=== PATIENT | male | born 1945 | race Caucasian/White ===

== ENCOUNTER 2019-01-17 07:34 | Inpatient (IN) ==
--- NOTE | 2019-01-16 12:38 | Anesthesia Evaluation PreOp ---
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 Any Significant HX Other Medical History: Diabetes Type II Anesthesia History: No Prior Anesthetic Complications, Past Anesthesia (lukas) Alcohol Use: rarely Drug use: none Medications and Allergies Cetirizine HCl 10 mg PO DAILY PRN 01/17/19 [History] Enalapril Maleate [Vasotec] 2.5 mg PO DAILY 01/17/19 [History] Escitalopram [Lexapro] 20 mg PO DAILY 01/17/19 [History] Metformin HCl [Fortamet] 500 mg PO BID 01/17/19 [History] Pioglitazone HCl 30 mg PO DAILY 01/17/19 [History] Tramadol HCl [Ultram] 50 mg PO TID PRN 01/17/19 [History] clonazePAM [Clonazepam] 1 mg PO TID 01/17/19 [History] Allergy/AdvReac Type Severity Reaction Status Date / Time No Known Allergies Allergy Verified 01/17/19 07:58 - Meds/Allergy Pre-op Review Medications Reviewed: Yes Allergies Reviewed: Yes Beta Blockers on Current Med List: No Anesthesia Results - Labs Laboratory Tests 01/11/19 01/11/19 01/11/19 11:03 11:03 11:03 WBC 5.5 Hgb 15.4 Hct 45.6 Plt Count 219 Sodium 136 Potassium 3.7 Chloride 101 Carbon Dioxide 24 BUN 20 Creatinine 1.32 H Est GFR (Non-Af Amer) 53 L Hemoglobin A1c 9.8 H - Imaging EKG: report reviewed Additional studies: 01/2018 echocardiogram Impressions: LVEF 60-65%. Mild left ventricular diastolic dysfunction. Normal right ventricular structure and function. Mild-moderate mitral regurgitation. Mild tricuspid regurgitation. No pulmonary hypertension. Left Ventricular Wall Motion: Rest Echo Findings All wall segments showed normal motion. Findings: Study Quality * Technically adequate exam. ECG Findings * Normal sinus rhythm. Left Ventricle * LVEF 60-65%. * LV wall thickness measurements not well obtained. * Mild left ventricular diastolic dysfunction. Right Ventricle * Normal right ventricular structure and function. Left Atrium * Normal left atrial size. Right Atrium * Normal right atrial size. Aortic Valve * No aortic regurgitation. * Trileaflet aortic valve. * No aortic stenosis. Mitral Valve * No mitral stenosis. * Mildly calcified mitral valve leaflets. * Mild-moderate mitral regurgitation. Tricuspid Valve * Tricuspid valve not well visualized. * Mild tricuspid regurgitation. * Estimated RA pressure is 3 mmHg. * Estimated RVSP is 27 mmHg. * No pulmonary hypertension. Pulmonic Valve * Pulmonic valve is not well visualized. * No pulmonic stenosis. * No pulmonic regurgitation. Pulmonary Artery * Pulmonary artery not well visualized. Aorta * Normally sized aortic root. Pericardium * There is no pericardial effusion present. Interatrial Septum * No evidence of PFO by color Doppler. IVC * Normal IVC dimensions and inspiratory collapse. Stress 01/2018 Impression: Perfusion imaging was negative for ischemia or infarct. Pharmacologic stress ECG is negative for ischemia at level of heart rate achieved. Gated EF > 70%. 11/22/2018 CT/CT angio chest IMPRESSION: 1. Slightly increased size of focal fat consistent with a lipoma superior to the left ventricle. Using similar planes of measurement, it measures 6.9 x 6.7 cm on the current exam, previously 6.4 x 6.2 cm. 2. Interval development of a ground-glass nodule in the left lower lobe measuring up to 2.3 cm, with adjacent more irregular ground-glass opacities medially in the left lower lobe. The differential includes an infectious or inflammatory process, although an indolent neoplasm could have a similar appearance. Continued follow-up is recommended per guidelines below. Anesthesia Exam Vital Signs/O2 Sat/Glucose, Most Recent Temp Pulse Resp BP Pulse Ox 97.9 F 78 18 153/89 95 01/17/19 07:54 01/17/19 07:54 01/17/19 07:54 01/17/19 07:54 01/17/19 07:54 Blood Glucose* 130 Weight: 82 kg NPO (# of Hours): > 8 hr - HEENT Pupil (Motor): Pupils equal Mallampati: II Teeth: Normal Oral Opening: Greater than 3 - COLLECTIVE BARGAINING SPECIALIST LOC: Oriented COLLECTIVE BARGAINING SPECIALIST Motor: Normal RUE, Normal LUE, Normal RLE, Normal LLE, Normal Face COLLECTIVE BARGAINING SPECIALIST Sensory: Normal: RUE, LUE, RLE, LLE, Face - Cardiac Rhythm: Regular Murmur: None - Pulmonary Breath Sounds: bilateral Clear Respiratory Effort: Symmetrical Anesthesia Assess/Plan ASA Score: 3 (HTN, DM, cardiac lipoma, LORNA) Level of consciousness: Cooperative, Oriented Anesthetic Plan: General Monitoring Plan: Standard Monitors, A-Line, CVC Recovery Plan: ICU
[2019-01-17] MEDS ORDERED: *HR* Midazolam HCl 5 MG/5 ML VIAL IVP ONE (07:37)
[2019-01-17] MEDS ORDERED: *HR* FentaNYL (PF) 1,000 MCG/20 ML VIAL ONE (07:37)
[2019-01-17] MEDS ORDERED: *HR* PHENYLEPHRINE 1,000 MCG/10 ML SYRINGE IVP ONE (07:37)
[2019-01-17] MEDS ORDERED: Dexamethasone 4 MG/ML VIAL ONE (07:37)
[2019-01-17] MEDS ORDERED: *HR* Rocuronium Bromide 50 MG/5 ML VIAL ONE ×2 (07:37→10:15)
[2019-01-17] MEDS ORDERED: *HR* Propofol 200 MG/20 ML VIAL IVP ONE (07:37)
[2019-01-17] MEDS ORDERED: Famotidine 20 MG/2 ML VIAL ONE (07:39)
[2019-01-17] MEDS ORDERED: *HR* Magnesium Sulfate 1 GM/2 ML VIAL ONE (07:45)
[2019-01-17] MEDS ORDERED: CeFAZolin Syr 2,000MG/20 ML 2,000 MG/20 ML SYRINGE IVPB ONE (08:06)
[2019-01-17] MEDS ORDERED: Chlorhexidine Rinse 15 ML MOUTHWASH MM ONE (08:08)
[2019-01-17] MEDS ORDERED: Ringers Solution, Lactated 1,000 ML IVC SCH (08:15)
--- NOTE | 2019-01-17 08:33 | History & Physical Report ---
Date of Encounter: 01/17/19 Time of Encounter: 08:32 24 Hour HP Update - Instructions Instructions: If the History and Physical is less than 30 days old and was completed prior to A.M. admission and or procedure and has NOT been updated on calendar day of procedure please complete this update prior to performing procedure. - Update Patient reports changes in Medical Condition: No Changes in examination, assessment, or condition: No Changes in Medication: No Preop tests/diagnostics Reviewed: Yes Pre-Op MRSA Screen: Negative Surgery Remains Indicated: Yes Consent for Planned Operative Procedure(s) Verified: Yes - Pre-Operative Checklist Preoperative Checklist Indicated: Yes Prophylactic Antibiotic Ordered: Yes Home Medications Include Beta Terra: No Beta Terra Taken Today (Day of Surgery): No Beta Terra Taken Yesterday (Day Prior to Surgery): No Is VTE Prophylaxis Indicated?: Yes
[2019-01-17] MEDS ORDERED: Nitroglycerin 25 MG/250 ML INFUS..BTL IVC ONE (08:46)
[2019-01-17] MEDS ORDERED: Acetaminophen IV 1,000 MG/100 ML INFUS..BTL ONE (08:57)
[2019-01-17] MEDS ORDERED: Norepinephrine 4 MG in D5% in Water 250 ML IVC SCH (09:00)
[2019-01-17 09:17] LABS: ABG Base Excess -2 mEq/L (-2 to 3); ABG Chloride 105 mEq/L (98-107); ABG Glucose 114 mg/dL (60-95); ABG HCO3 24 mEq/L (21-27); ABG Ionized Calcium 1.24 mmol/L (1.15-1.35); ABG Oxygen Saturation 100 % (95-98); ABG PCO2 48 mmHg (35-45); ABG PH 7.32 pH Units (7.32-7.45); ABG PO2 275 mmHg (85-104); ABG TCO2 26 mEq/L (20-26)
[2019-01-17] MEDS ORDERED: Tranexamic Acid 1,000 MG/10 ML VIAL ONE (09:58)
[2019-01-17] MEDS ORDERED: Insulin Human Regular 100 UNIT in 0.9 % Sodium Chloride 100 ML IV PRN ×2 (10:00→11:49)
[2019-01-17] MEDS ORDERED: Dextrose 50 % in Water (Vial) 30 ML, Sodium Bicarbonate 20 MEQ, Lidocaine 1% 5 ML, Insu... TH ONE ×5 (10:00→11:49)
[2019-01-17] MEDS ORDERED: Dextrose 50 % in Water (Vial) 30 ML, Sodium Bicarbonate 20 MEQ, Potassium Chloride 15 M... TH ONE ×2 (10:00→11:49)
[2019-01-17] MEDS ORDERED: Norepinephrine 4 MG in D5% in Water 250 ML IVC PRN (10:00)
[2019-01-17] MEDS ORDERED: Heparin 15,000 UNIT in 0.9 % Sodium Chloride 500 ML IV ONE (10:15)
[2019-01-17] MEDS ORDERED: Protamine Sulfate 250 MG/25 ML VIAL IVP ONE (10:17)
[2019-01-17 10:18] LABS: ABG Base Excess -3 mEq/L (-2 to 3); ABG Chloride 106 mEq/L (98-107); ABG Glucose 115 mg/dL (60-95); ABG HCO3 22 mEq/L (21-27); ABG Ionized Calcium 1.18 mmol/L (1.15-1.35); ABG Oxygen Saturation 100 % (95-98); ABG PCO2 36 mmHg (35-45); ABG PO2 193 mmHg (85-104); ABG TCO2 23 mEq/L (20-26)
[2019-01-17] MEDS ORDERED: Ondansetron 4 MG/2 ML VIAL ONE (10:30)
[2019-01-17] MEDS ORDERED: *HR* Labetalol 100 MG/20 ML MDV ONE (10:34)
[2019-01-17 10:55] LABS: ABG Base Excess -1 mEq/L (-2 to 3); ABG Chloride 103 mEq/L (98-107); ABG Glucose 120 mg/dL (60-95); ABG HCO3 25 mEq/L (21-27); ABG Ionized Calcium 1.08 mmol/L (1.15-1.35); ABG Oxygen Saturation 100 % (95-98); ABG PCO2 42 mmHg (35-45); ABG PH 7.38 pH Units (7.32-7.45); ABG PO2 495 mmHg (85-104); ABG TCO2 26 mEq/L (20-26)
--- NOTE | 2019-01-17 11:33 | Operative Note ---
Date of procedure: 01/17/19 Pre-op diagnosis: epicardial lipoma Post-op diagnosis: same Procedure: transternal resection of epicardial lipoma with bypass Complications: none Anesthesia: IMERA Surgeon: Guero Patterson Co-Surgeon: Heidy Kincaid Was there an staffing assistant present: No Estimated blood loss (cc): 100 Specimen: lipoma Condition: stable Disposition: ICU Procedure in Detail: The patient was brought to the operating room and placed on the operating table in the supine position. After undergoing general anesthesia with sequential compressive devices on bilateral lower extremities and perioperative antibiotics on board was prepped and draped in the usual sterile fashion an incision was made overlying the sternum with a #10 scalpel blade through the skin down of the subcutaneous tissues with the Bovie used to control hemostasis and to continue the dissection down to the sternum the sternum was divided longitudinally with the sternal saw, and periosteal bleeding controlled with the Bovie cautery. After opening of the pericardium and tacking it to the sternum epicardial lipoma could be identified coming off posterior to the aorta and anterior to the main pulmonary artery due to this location and hypotension only down to the 90s with manipulating the heart the patient was fully anticoagulated with 27,000 units of heparin aorta was cannulated with 2-0 Ethibond sutures 2 and the atrial appendage cannulated with 2-0 Ethibond suture. Once going on bypass and decompressing the heart the heart was elevated and removed towards the right of midline. Epicardial tumor was grasped and dissected off the space between the posterior aorta and anterior to the main pulmonary artery. Hemostasis was excellent even while on pump patient received 300 units of protamine to reverse the effects of heparin the venous cannula withdrawn and the suture tied hemostasis was excellent the arterial cannula was withdrawn and the 2 pursestring sutures tied hemostasis remained excellent up to 141 systolic blood pressure. 2 separate incisions were made on the anterior abdominal wall and 24 Buck drains are placed through the pericardium into the right and left pleural spaces and secured into place with silk suture. Sternal wires were placed sternal wires were taken and platelet rich gel sprayed over the bed of the sternum and the deep subcutaneous tissues. Remaining incision was closed with #1 Vicryl, 0 Vicryl, and 4-0 Monocryl subcuticular stitches with dressings consisting of Steri-Strips and sterile gauze. Patient was taken to the intensive care unit. The total pump run time was 11 minutes.
[2019-01-17] MEDS ORDERED: niCARdipine 20 MG/200 ML MLS IVC SCH (11:45)
[2019-01-17] MEDS: niCARdipine 20 MG/200 ML MLS IVC SCH ×3 (11:48→21:28)
[2019-01-17] MEDS ORDERED: Ondansetron 4 MG/2 ML VIAL IVP PRN (11:49)
[2019-01-17] MEDS ORDERED: Dextrose Gel 15 GM/37.5 ML TUBE PO PRN ×2 (11:49)
[2019-01-17] MEDS ORDERED: Naloxone 0.4 MG/ML INJ IVP PRN (11:49)
[2019-01-17] MEDS ORDERED: *HR* Dextrose 50 % in Water (Syg) 50 ML SYRINGE IVP PRN (11:49)
[2019-01-17] MEDS ORDERED: D5% in Water 1,000 ML IVC PRN (11:49)
--- NOTE | 2019-01-17 12:33 | Anesthesia Evaluation Post Op ---
Date of Encounter: 01/17/19 Time of Encounter: 12:31 - Vital Signs Vital Signs: Vital Signs/O2 Sat/Glucose, Most Recent Temp Pulse Resp BP Pulse Ox 96.9 F L 63 16 102/54 93 01/17/19 11:40 01/17/19 12:15 01/17/19 12:15 01/17/19 12:15 01/17/19 12:15 Blood Glucose* 166 - Lungs Lungs: Clear Ascult./Percussion - Airway Airway: Intubated - Cardiovascular Regular Rate - Mental Status Mental Status: Alert & Oriented, Answers Appropriately - Pain Pain Scale used: Unable to assess - Nausea Vomiting Nausea Vomiting: Not Present - Hydration Hydration: NPO, Cantor catheter - Discharge Attestation: patient recovering well POD#0 sternotomy and cardiac lipoma resection. Currently weaning to extubation
[2019-01-17] MEDS: 0.9 % Sodium Chloride 1,000 ML IVC SCH (13:07)
[2019-01-17] MEDS: Morphine Sulfate 2 MG/ML SYRINGE IVP PRN ×3 (13:09→22:39)
[2019-01-17] MEDS: Ipratropium/Albuterol Neb 3 ML IH SCH ×4 (13:44→23:11)
--- NOTE | 2019-01-17 13:53 | Electrocardiograph Report ---
[place] [id number] Test Date: 2019-01-17 Pat Name: William Burden Department: 106 Room: [facility] Gender: M Director Of Nurses Registry: : 1945 Requested By: Vick Peacock Order Number: [id number] Reading MD: Srinivas Bradshaw Measurements Intervals [place] Rate: 66 P: 32 OR: 171 QRS: -2 QRSD: 102 T: 13 QT: 389 QTc: 403 Interpretive Statements SINUS RHYTHM NONSPECIFIC T-WAVE ABNORMALITY Electronically Signed On 01-17-2019 13:51:55 EDT by Srinivas Bradshaw
[2019-01-17] MEDS: Insulin LISPRO 300 UNITS/3 ML VIAL SQ SCH ×3 (14:00→20:01)
[2019-01-17] MEDS: clonazePAM 1 MG TABLET PO SCH ×2 (16:16→20:00)
[2019-01-17] MEDS: Gabapentin 300 MG CAPSULE PO SCH ×2 (16:16→20:00)
[2019-01-17] MEDS ORDERED: Sodium Bicarbonate 50 MEQ/50 ML VIAL IVC ONE (16:20)
[2019-01-17] MEDS ORDERED: Albumin Human 25% 25 GM/100 ML IV.SOLN IV ONE (16:20)
[2019-01-17] MEDS ORDERED: *HR* Heparin 10,000 UNIT/10 ML VIAL IV ONE (16:20)
[2019-01-17] MEDS ORDERED: Tranexamic Acid 1,000 MG/10 ML VIAL IVPB ONE (16:20)
[2019-01-17] MEDS ORDERED: *HR* Phenylephrine 10 MG/ML VIAL IVC ONE (16:20)
[2019-01-17] MEDS ORDERED: Mannitol 25% vial 12.5 GM/50 ML VIAL IVP ONE (16:20)
[2019-01-17] MEDS: Sennosides/Docusate Sodium TABLET PO SCH (20:00)
[2019-01-17] MEDS: Famotidine 20 MG TABLET PO SCH (20:00)
[2019-01-17] MEDS: *HR* HYDROcodone/Acet 5/325 mg TABLET PO PRN (20:07)
[2019-01-18] MEDS: niCARdipine 20 MG/200 ML MLS IVC SCH ×5 (00:22→09:13)
[2019-01-18] MEDS: 0.9 % Sodium Chloride 1,000 ML IVC SCH (01:30)
[2019-01-18] MEDS: Ipratropium/Albuterol Neb 3 ML IH SCH ×6 (03:54→23:58)
[2019-01-18 04:16] LABS: Hematocrit 37.6 % (37.5-50.1); Mean Corpuscular HGB Conc 34.6 g/dL (31.6-35.5); Mean Corpuscular Hemoglobin 30.7 pg (28.0-33.3); Mean Corpuscular Volume 88.7 fL (83.0-100.0); Mean Platelet Volume 9.4 fL (9.4-12.4); Platelet Count 174 K/mcL (140-400); Red Blood Count 4.24 M/mcL (4.19-5.50)
[2019-01-18 04:34] LABS: BUN/Creatinine Ratio 19 (6-26); Blood Urea Nitrogen 22 mg/dL (8-23); Calcium 8.1 mg/dL (8.6-10.3); Carbon Dioxide 21 mEq/L (23-29); Chloride 106 mEq/L (98-107); Glucose 257 mg/dL (70-105); Magnesium 1.6 mg/dL (1.6-2.6); Osmolality,Calculated 290 (280-300); Potassium 4.8 mEq/L (3.5-5.1); Sodium 134 mEq/L (136-145); eGFR For African Americans > 60 (> 60); eGFR For Non-African Americans > 60 (> 60)
[2019-01-18] MEDS: *HR* HYDROcodone/Acet 5/325 mg TABLET PO PRN ×3 (06:38→19:32)
[2019-01-18] MEDS: Morphine Sulfate 2 MG/ML SYRINGE IVP PRN (08:00)
[2019-01-18] MEDS: Insulin LISPRO 300 UNITS/3 ML VIAL SQ SCH ×4 (08:00→19:34)
[2019-01-18] MEDS: Sennosides/Docusate Sodium TABLET PO SCH ×2 (08:12→19:32)
[2019-01-18] MEDS: Gabapentin 300 MG CAPSULE PO SCH ×3 (08:12→19:32)
[2019-01-18] MEDS: Famotidine 20 MG TABLET PO SCH ×2 (08:12→19:34)
--- NOTE | 2019-01-18 09:31 | Cardiothoracic Progress Note ---
Date of Encounter: 01/18/19 Time of Encounter: 09:29 - Assessment and plan (1) Benign tumor of heart Current Visit: Yes Status: Acute The assessment and plan as outlined above was discussed with the patient and/or family members who expressed understanding and agreement. All questions were answered. remove central line and a line today replace magnesium (2) Essential hypertension Current Visit: No Status: Chronic The assessment and plan as outlined above was discussed with the patient and/or family members who expressed understanding and agreement. All questions were answered. 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 All questions were answered. continue current diet and home meds Vital Signs, Last 4 Hours Temp Pulse Resp BP Pulse Ox 01/18/19 08:00 74 19 135/58 93 01/18/19 07:30 74 20 135/51 90 01/18/19 06:56 98.7 F 01/18/19 06:00 75 21 132/51 90 Oxgyen Flow Rate Oxygen Flow Rate (LPM) 10 Clinical Data, last 8 Hours Output, Chest Tube Drainage 24 Amount [Mediastinal #2] Output, Chest Tube Drainage 26 Amount [Mediastinal #2] Output, Chest Tube Drainage 30 Amount [Mediastinal #1] Output, Chest Tube Drainage 60 Amount [Mediastinal #1] Weight 01/16/19 01/17/19 01/18/19 23:59 23:59 23:59 Weight 89.4 kg 89.4 kg - Physical Examination General: Conversant, No Apparent Distress, Well developed, Well nourished HEENT: Atraumatic, Normocephaly Cardiac: Reg Rate and Rhythm, Normal S1 and S2 Incision: No signs of infection, Dry/intact dressing Chest tubes: Minimal drainage Lungs: Normal Breath Sounds Neuro: Alert and responsive, No focal deficits noted, Cranial nerves intact, Motor nerves intact Abdomen: Soft, Non-tender - Labs 01/18/19 04:00 01/18/19 04:00 Lab Results, Last 24 hours 01/18/19 01/18/19 04:00 04:00 WBC 15.0 H D Hgb 13.0 D Hct 37.6 Plt Count 174 Sodium 134 L Potassium 4.8 Chloride 106 Carbon Dioxide 21 L BUN 22 Creatinine 1.14 Glucose 257 H Calcium 8.1 L Magnesium 1.6 - Imaging Chest Xray: image reviewed Consult Discharge Plan - Plan Referrals: Seven Raymundo MD [Primary Care Provider] - 01/29/19 2:00 pm Guero Patterson MD [Partnered Physician] - 02/11/19 9:50 am
[2019-01-18] MEDS: clonazePAM 1 MG TABLET PO SCH ×3 (11:16→19:32)
[2019-01-19] MEDS: Ipratropium/Albuterol Neb 3 ML IH SCH ×6 (04:08→23:43)
[2019-01-19 06:17] LABS: BUN/Creatinine Ratio 15 (6-26); Blood Urea Nitrogen 16 mg/dL (8-23); Calcium 8.8 mg/dL (8.6-10.3); Carbon Dioxide 27 mEq/L (23-29); Chloride 100 mEq/L (98-107); Glucose 211 mg/dL (70-105); Osmolality,Calculated 293 (280-300); Potassium 4.1 mEq/L (3.5-5.1); Sodium 138 mEq/L (136-145); eGFR For African Americans > 60 (> 60); eGFR For Non-African Americans > 60 (> 60)
[2019-01-19] MEDS: clonazePAM 1 MG TABLET PO SCH ×3 (09:29→20:54)
[2019-01-19] MEDS: Sennosides/Docusate Sodium TABLET PO SCH ×2 (09:29→20:54)
[2019-01-19] MEDS: Famotidine 20 MG TABLET PO SCH ×2 (09:30→20:54)
[2019-01-19] MEDS: Gabapentin 300 MG CAPSULE PO SCH ×3 (09:30→20:54)
[2019-01-19] MEDS: *HR* HYDROcodone/Acet 5/325 mg TABLET PO PRN ×3 (09:32→20:54)
[2019-01-19] MEDS: Insulin LISPRO 300 UNITS/3 ML VIAL SQ SCH ×4 (09:41→22:46)
--- NOTE | 2019-01-19 11:31 | Cardiothoracic Progress Note ---
Date of Encounter: 01/19/19 Time of Encounter: 11:29 - Assessment and plan (1) Benign tumor of heart Current Visit: Yes Status: Acute The assessment and plan as outlined above was discussed with the patient and/or family members who expressed understanding and agreement. All questions were answered. remove chest tubes. orders for eli to be removed. tx to floor. (2) Essential hypertension Current Visit: No Status: Chronic The assessment and plan as outlined above was discussed with the patient and/or family members who expressed understanding and agreement. All questions were answered. 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 All questions were answered. continue current diet and home meds Vital Signs, Last 4 Hours Temp Pulse Resp BP Pulse Ox 01/19/19 11:20 18 95 01/19/19 11:11 98.5 F 01/19/19 10:00 78 20 130/71 94 01/19/19 09:00 86 20 124/64 96 01/19/19 08:00 86 01/19/19 07:41 16 94 Oxgyen Flow Rate Oxygen Flow Rate (LPM) 4 Clinical Data, last 8 Hours Output, Chest Tube Drainage 40 Amount [Mediastinal #2] Output, Chest Tube Drainage 0 Amount [Mediastinal #2] Output, Chest Tube Drainage 10 Amount [Mediastinal #2] Output, Chest Tube Drainage 50 Amount [Mediastinal #1] Output, Chest Tube Drainage 0 Amount [Mediastinal #1] Output, Chest Tube Drainage 0 Amount [Mediastinal #1] Weight 01/17/19 01/18/19 01/19/19 23:59 23:59 23:59 Weight 89.4 kg 89.4 kg 89.7 kg - Physical Examination General: Conversant, No Apparent Distress HEENT: Atraumatic, Normocephaly Neck: No JVD Cardiac: Reg Rate and Rhythm, Normal S1 and S2 Incision: No signs of infection, Dry/intact dressing, Open to air Chest tubes: Minimal drainage Lungs: Normal Breath Sounds Neuro: Alert and responsive, No focal deficits noted, Cranial nerves intact, Motor nerves intact - Labs 01/18/19 04:00 01/19/19 05:08 Lab Results, Last 24 hours 01/19/19 05:08 Sodium 138 Potassium 4.1 Chloride 100 Carbon Dioxide 27 BUN 16 Creatinine 1.09 Glucose 211 H Calcium 8.8 Consult Discharge Plan - Plan Referrals: Seven Raymundo MD [Primary Care Provider] - 01/29/19 2:00 pm Guero Patterson MD [Partnered Physician] - 02/11/19 9:50 am
[2019-01-20] MEDS ORDERED: Naloxone 0.4 MG/ML INJ IVP PRN (02:29)
[2019-01-20] MEDS ORDERED: Ondansetron 4 MG/2 ML VIAL IVP PRN (02:29)
[2019-01-20] MEDS ORDERED: Dextrose Gel 15 GM/37.5 ML TUBE PO PRN ×2 (02:29)
[2019-01-20] MEDS ORDERED: *HR* Dextrose 50 % in Water (Syg) 50 ML SYRINGE IVP PRN (02:29)
[2019-01-20] MEDS ORDERED: D5% in Water 1,000 ML IVC PRN (02:29)
[2019-01-20] MEDS: Ipratropium/Albuterol Neb 3 ML IH SCH ×6 (03:59→23:27)
[2019-01-20] MEDS: *HR* HYDROcodone/Acet 5/325 mg TABLET PO PRN ×3 (05:18→20:30)
[2019-01-20] MEDS: Famotidine 20 MG TABLET PO SCH ×2 (08:29→20:30)
[2019-01-20] MEDS: Gabapentin 300 MG CAPSULE PO SCH ×3 (08:29→20:30)
[2019-01-20] MEDS: clonazePAM 1 MG TABLET PO SCH ×3 (08:29→20:30)
[2019-01-20] MEDS: Insulin LISPRO 300 UNITS/3 ML VIAL SQ SCH ×4 (08:31→20:47)
[2019-01-20] MEDS: Sennosides/Docusate Sodium TABLET PO SCH ×2 (08:38→20:29)
--- NOTE | 2019-01-20 14:35 | Cardiothoracic Progress Note ---
Date of Encounter: 01/20/19 Time of Encounter: 14:35 - Assessment and plan (1) Benign tumor of heart Current Visit: Yes Status: Acute The assessment and plan as outlined above was discussed with the patient and/or family members who expressed understanding and agreement. All questions were answered. Mr. Burden is doing well status post resection of an 8 cm lipoma on bypass. From neuro standpoint he has stable pain which is better controlled today. From a cardiovascular standpoint no issues. From a respiratory standpoint he has a few rales in the left base, facial edema and peripheral edema. We will give him a one-time dose of 20mg po Lasix now. From GI standpoint he is doing well and has had a bowel movement. FEN--He is still on insulin sliding scale and has not yet been started on his metformin. Known diabetic preoperatively. Heme standpoint is stable on DVT prophylaxis walking and teds and SCDs and getting little bit more secure in his walking. Overnight plan get off O2 to off see if he is ready Monday, Monday to go home (2) Essential hypertension Current Visit: No Status: Chronic The assessment and plan as outlined above was discussed with the patient and/or family members who expressed understanding and agreement. All questions were answered. (3) NIDDY (non-insulin dependent diabetes mellitus in young) Current Visit: No Status: Chronic The assessment and plan as outlined above was discussed with the patient and/or family members who expressed understanding and agreement. All questions were answered. - Subjective Interval history: Test test test Mr. Harman has no complaints and is very comfortable doing well Vital Signs, Last 4 Hours Temp Pulse Resp BP Pulse Ox 01/20/19 11:54 98.3 F 86 18 138/57 93 01/20/19 11:14 18 92 Oxgyen Flow Rate Oxygen Flow Rate (LPM) 3 Weight 01/18/19 01/19/19 01/20/19 23:59 23:59 23:59 Weight 89.4 kg 89.7 kg 87 kg - Physical Examination General: Conversant, No Apparent Distress HEENT: Atraumatic, Normocephaly, Trachea midline, Other Neck: No JVD Cardiac: Reg Rate and Rhythm, Normal S1 and S2, No Murmur Incision: Dry/intact dressing Sternum: Stable Chest tubes: Other Pacing Wires: In place Lungs: Decreased breath sounds Neuro: Alert and responsive, No focal deficits noted Abdomen: Soft, Non-tender Skin: No rashes noted on visualized skin Musculoskeletal: No Chest Wall Tenderness Extremities: No Clubbing, No Cyanosis (On physical exam Mr. Burden has stable vital signs neurologically he is intact from a cardiovascular standpoint he has regular rate and rhythm without murmurs rubs gallops or bruits his sternotomy incision is well-healed with no acute has good breath sounds in the right base but does have rales in the left base his abdomen is soft and nontender. His extremities have 1+ peripheral edema of note he does have facial swelling.) - Labs 01/18/19 04:00 01/19/19 05:08 Consult Discharge Plan - Plan Referrals: Seven Raymundo MD [Primary Care Provider] - 01/29/19 2:00 pm Guero Patterson MD [Partnered Physician] - 02/11/19 9:50 am
[2019-01-20] MEDS ORDERED: Furosemide 20 MG/2 ML VIAL IVP ONE (16:26)
[2019-01-20] MEDS ORDERED: Furosemide 20 MG TABLET PO ONE (16:29)
[2019-01-21] MEDS: Ipratropium/Albuterol Neb 3 ML IH SCH ×6 (03:48→23:46)
[2019-01-21] MEDS: *HR* HYDROcodone/Acet 5/325 mg TABLET PO PRN ×2 (04:05→20:59)
[2019-01-21] MEDS: Sennosides/Docusate Sodium TABLET PO SCH ×2 (07:58→20:59)
[2019-01-21] MEDS: clonazePAM 1 MG TABLET PO SCH ×3 (07:58→20:59)
[2019-01-21] MEDS: Famotidine 20 MG TABLET PO SCH ×2 (07:58→20:59)
[2019-01-21] MEDS: Gabapentin 300 MG CAPSULE PO SCH ×3 (07:58→20:59)
[2019-01-21] MEDS: Insulin LISPRO 300 UNITS/3 ML VIAL SQ SCH ×4 (07:59→20:58)
--- NOTE | 2019-01-21 12:10 | Cardiothoracic Progress Note ---
Date of Encounter: 01/21/19 Time of Encounter: 12:09 - Assessment and plan (1) Benign tumor of heart Current Visit: Yes Status: Acute The assessment and plan as outlined above was discussed with the patient and/or family members who expressed understanding and agreement. All questions were answered. encouraged ambulation mom for bm (2) Essential hypertension Current Visit: No Status: Chronic The assessment and plan as outlined above was discussed with the patient and/or family members who expressed understanding and agreement. All questions were answered. 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 All questions were answered. continue current diet and home meds Vital Signs, Last 4 Hours Temp Pulse Resp BP Pulse Ox 01/21/19 11:27 18 90 01/21/19 11:11 97.6 F 94 18 133/69 90 Oxgyen Flow Rate Oxygen Flow Rate (LPM) 0 Weight 01/19/19 01/20/19 01/21/19 23:59 23:59 23:59 Weight 89.7 kg 87 kg 88.4 kg - Physical Examination General: Conversant, No Apparent Distress, Well developed, Well nourished HEENT: Atraumatic Neck: No JVD Cardiac: Reg Rate and Rhythm, Normal S1 and S2 Incision: No signs of infection, Dry/intact dressing Lungs: Normal Breath Sounds Neuro: Alert and responsive, No focal deficits noted, Cranial nerves intact Abdomen: Soft, Non-tender, Other (flatus but no bm ) - Labs 01/18/19 04:00 01/19/19 05:08 Consult Discharge Plan - Plan Referrals: Seven Raymundo MD [Primary Care Provider] - 01/29/19 2:00 pm Guero Patterson MD [Partnered Physician] - 02/11/19 9:50 am
[2019-01-21] MEDS: MOM Conc 10 ML UD.LIQ PO SCH (12:45)
[2019-01-22] MEDS: *HR* HYDROcodone/Acet 5/325 mg TABLET PO PRN ×2 (01:41→10:10)
[2019-01-22] MEDS: Ipratropium/Albuterol Neb 3 ML IH SCH ×3 (04:00→11:43)
[2019-01-22] MEDS: Gabapentin 300 MG CAPSULE PO SCH (08:04)
[2019-01-22] MEDS: clonazePAM 1 MG TABLET PO SCH (08:04)
[2019-01-22] MEDS: Sennosides/Docusate Sodium TABLET PO SCH (08:04)
[2019-01-22] MEDS: MOM Conc 10 ML UD.LIQ PO SCH (08:05)
[2019-01-22] MEDS: Famotidine 20 MG TABLET PO SCH (08:05)
[2019-01-22] MEDS: Insulin LISPRO 300 UNITS/3 ML VIAL SQ SCH ×2 (08:05→12:11)
[2019-01-22 11:34] VITALS: BP 119/76
--- NOTE | 2019-01-22 12:54 | Discharge Summary ---
Date of Encounter: 01/22/19 Time of Encounter: 12:52 - Discharge Diagnosis (1) Benign tumor of heart Priority: Primary Status: Acute (2) Essential hypertension Priority: Secondary Status: Chronic (3) NIDDY (non-insulin dependent diabetes mellitus in young) Priority: Secondary Status: Chronic - Hospital Course Hospital course: Mr. Burden is a 73 year old male - Time Spent with Patient Total time spent providing and/or coordinating discharge services: - Discharge Medications Prescriptions: No Action Tramadol HCl [Ultram] 50 mg PO TID PRN PRN Reason: Mild To Moderate Pain Pioglitazone HCl 30 mg PO DAILY Metformin HCl [Fortamet] 500 mg PO BID Escitalopram [Lexapro] 20 mg PO DAILY Enalapril Maleate [Vasotec] 2.5 mg PO DAILY clonazePAM [Clonazepam] 1 mg PO TID Cetirizine HCl 10 mg PO DAILY PRN PRN Reason: Allergy Symptoms Home Medications: Cetirizine HCl 10 mg PO DAILY PRN 01/17/19 [History] Enalapril Maleate [Vasotec] 2.5 mg PO DAILY 01/17/19 [History] Escitalopram [Lexapro] 20 mg PO DAILY 01/17/19 [History] Metformin HCl [Fortamet] 500 mg PO BID 01/17/19 [History] Pioglitazone HCl 30 mg PO DAILY 01/17/19 [History] Tramadol HCl [Ultram] 50 mg PO TID PRN 01/17/19 [History] clonazePAM [Clonazepam] 1 mg PO TID 01/17/19 [History] Allergies/Adverse Reactions: Allergy/AdvReac Type Severity Reaction Status Date / Time No Known Allergies Allergy Verified 01/17/19 07:58 Date of admission: 01/17/19 11:51 Primary care physician: Seven Raymundo MD Consults: none Procedure(s) Performed: resection of epicardial tumor Discharging clinician: Guero Patterson Anticipated date of discharge: 01/22/19 Physical Examination Vital Signs, Last 4 Hours Temp Pulse Resp BP Pulse Ox 01/22/19 11:29 97.8 F 92 18 119/76 93 General: Conversant, No Apparent Distress, Well developed, Well nourished HEENT: Atraumatic, Normocephaly Cardiac: Reg Rate and Rhythm, Normal S1 and S2 Neuro: Alert and responsive, No focal deficits noted, Cranial nerves intact, Motor nerves intact Skin: No rashes noted on visualized skin Musculoskeletal: Other (sternum stable ) Extremities: No Edema - Patient Status Disposition: Home, Self-Care Condition: Good Functional capacity at discharge: independent ambulation Overall status at discharge: patient is progressing back to baseline - Discharge Instructions Follow Up With: Seven Raymundo MD [Primary Care Provider] - 01/29/19 2:00 pm Guero Patterson MD [Partnered Physician] - 02/11/19 9:50 am - Diet and Activity Activity: sternal precautions, no driving for four weeks, no lifting greater than 10 pounds for eight weeks, increase activity as tolerated Diet: advance to your usual diet Additional instructions: remove gauzes on monday
== END 2019-01-22 16:21 | disposition home or self-care (01) | DRG 165 ==
LOC: SAMDAY 07:34 → ICNU 11:51 → 2NNU 01-19 17:11
PROVIDERS: ADMIT Thoracic Surgery (Cardiothoracic Vascular Surgery); ATTEND Thoracic Surgery (Cardiothoracic Vascular Surgery)

== ENCOUNTER 2021-04-07 00:51 | Inpatient (IN) ==
[2021-04-07] MEDS ORDERED: Isovue-370 500 ML BOTTLE IVP ONE (01:58)
[2021-04-07] MEDS ORDERED: *HR* HYDROmorphone (PF) 1 MG/ML SYRINGE IVP ONE ×2 (02:00→05:48)
[2021-04-07] MEDS ORDERED: Ondansetron 4 MG/2 ML VIAL IVP ONE (02:01)
[2021-04-07 02:40] LABS: Basophils % 0.3 %; Eosinophils % 0.4 %; Hematocrit 43.7 % (37.5-50.1); Hemoglobin 15.3 g/dL (12.9-16.9); Immature Granulocytes % 0.4 % (0-4); Lymphocytes # 1.6 K/mcL (0.6-4.6); Lymphocytes % 14.9 %; Mean Corpuscular Hemoglobin 31.5 pg (28.0-33.3); Mean Corpuscular Volume 90.1 fL (83.0-100.0); Mean Platelet Volume 9.2 fL (9.4-12.4); Monocytes # 0.5 K/mcL (0.0-1.3); Monocytes % 4.8 %; Neutrophils # 8.6 K/mcL (1.6-8.9); Platelet Count 211 K/mcL (140-400); Red Blood Count 4.85 M/mcL (4.19-5.50); Segmented Neutrophils % 79.2 %; White Blood Count 10.8 K/mcL (4.3-11.1)
[2021-04-07 02:48] LABS: INR 1.6; Prothrombin Time 17.6 Seconds (9.4-12.1)
[2021-04-07 02:51] LABS: Activated Partial Thrombo Time 33.8 Seconds (26.0-36.0)
[2021-04-07 02:58] LABS: Albumin 4.6 g/dL (3.5-5.7); Albumin/Globulin Ratio 1.5 (1.1-2.2); Bilirubin,Total 1.6 mg/dL (0.3-1.0); Calcium 10.1 mg/dL (8.6-10.3); Potassium 4.3 mEq/L (3.5-5.1); Total Protein 7.6 g/dL (6.4-8.9)
[2021-04-07] MEDS ORDERED: Naloxone 0.4 MG/ML INJ IVP PRN (05:58)
[2021-04-07] MEDS: 0.9 % Sodium Chloride 1,000 ML IVC SCH ×2 (05:59→19:41)
[2021-04-07] MEDS ORDERED: 0.9 % Sodium Chloride 1,000 ML IVC SCH (06:00)
[2021-04-07] MEDS ORDERED: Dextrose Gel 15 GM/37.5 ML TUBE PO PRN ×2 (06:17)
[2021-04-07] MEDS ORDERED: D5% in Water 1,000 ML IVC PRN (06:17)
[2021-04-07] MEDS ORDERED: *HR* Dextrose 50 % in Water (Syg) 50 ML SYRINGE IVP PRN (06:17)
[2021-04-07] MEDS: Morphine Sulfate 2 MG/ML SYRINGE IVP PRN (12:32)
[2021-04-07] MEDS: Ondansetron 4 MG/2 ML VIAL IVP PRN ×2 (12:32→17:27)
[2021-04-07] MEDS: clonazePAM 1 MG TABLET PO SCH ×3 (14:10→20:15)
[2021-04-07] MEDS ORDERED: E-Z-PAQUE (BARIUM SULF) SUSP 1 BOTTLE PO ONE (14:55)
[2021-04-07] MEDS: Insulin LISPRO 300 UNITS/3 ML VIAL SUBQ SCH ×3 (17:09→21:55)
[2021-04-07] MEDS: Pantoprazole 40 MG VIAL IVP SCH (17:09)
[2021-04-07] MEDS: *HR* Heparin 5,000 UNIT/ML VIAL SQ SCH (17:10)
[2021-04-08] MEDS: *HR* Heparin 5,000 UNIT/ML VIAL SQ SCH ×2 (06:32→17:54)
[2021-04-08 07:41] LABS: Basophils % 0.5 %; Eosinophils # 0.1 K/mcL (0.0-0.6); Eosinophils % 1.9 %; Hematocrit 37.8 % (37.5-50.1); Immature Granulocytes % 0.2 % (0-4); Lymphocytes # 2.4 K/mcL (0.6-4.6); Lymphocytes % 37.8 %; Mean Corpuscular HGB Conc 33.9 g/dL (31.6-35.5); Mean Corpuscular Hemoglobin 31.4 pg (28.0-33.3); Mean Corpuscular Volume 92.6 fL (83.0-100.0); Mean Platelet Volume 9.5 fL (9.4-12.4); Monocytes # 0.5 K/mcL (0.0-1.3); Monocytes % 7.4 %; Neutrophils # 3.3 K/mcL (1.6-8.9); Platelet Count 177 K/mcL (140-400); Red Blood Count 4.08 M/mcL (4.19-5.50); Red Cell Distribution Width 12.9 % (11.5-14.5); Segmented Neutrophils % 52.2 %; White Blood Count 6.4 K/mcL (4.3-11.1)
[2021-04-08] MEDS: Insulin LISPRO 300 UNITS/3 ML VIAL SUBQ SCH ×4 (07:49→21:33)
[2021-04-08 07:50] LABS: Hemoglobin 12.8 g/dL (12.9-16.9)
[2021-04-08 08:03] LABS: BUN/Creatinine Ratio 12 (6-26); Blood Urea Nitrogen 16 mg/dL (8-23); Carbon Dioxide 28 mEq/L (23-29); Chloride 105 mEq/L (98-107); Glucose 110 mg/dL (70-105); Magnesium 1.7 mg/dL (1.6-2.6); Osmolality,Calculated 288 (280-300); Potassium 3.8 mEq/L (3.5-5.1); Sodium 138 mEq/L (136-145); eGFR For African Americans > 60 (> 60); eGFR For Non-African Americans 54 (> 60)
[2021-04-08] MEDS: lisinopriL 5 MG TABLET PO SCH (08:05)
[2021-04-08] MEDS: Pantoprazole 40 MG VIAL IVP SCH (08:05)
[2021-04-08] MEDS: clonazePAM 1 MG TABLET PO SCH ×3 (08:05→19:50)
[2021-04-08] MEDS: Ondansetron 4 MG/2 ML VIAL IVP PRN (08:16)
[2021-04-08] MEDS: Morphine Sulfate 2 MG/ML SYRINGE IVP PRN ×2 (12:23→23:39)
[2021-04-08] MEDS ORDERED: Metoclopramide 10 MG/2 ML VIAL IVP PRN (13:07)
[2021-04-08] MEDS: 0.9 % Sodium Chloride 1,000 ML IVC SCH (13:40)
[2021-04-08] MEDS: Metoclopramide 10 MG/2 ML VIAL IVP SCH ×2 (17:54→23:37)
[2021-04-09 02:02] LABS: Basophils % 0.5 %; Eosinophils # 0.1 K/mcL (0.0-0.6); Eosinophils % 2.2 %; Hematocrit 36.1 % (37.5-50.1); Hemoglobin 12.2 g/dL (12.9-16.9); Immature Granulocytes % 0.2 % (0-4); Lymphocytes # 2.6 K/mcL (0.6-4.6); Lymphocytes % 47.9 %; Mean Corpuscular HGB Conc 33.8 g/dL (31.6-35.5); Mean Corpuscular Hemoglobin 31.4 pg (28.0-33.3); Mean Platelet Volume 9.3 fL (9.4-12.4); Monocytes # 0.5 K/mcL (0.0-1.3); Monocytes % 8.5 %; Neutrophils # 2.2 K/mcL (1.6-8.9); Platelet Count 173 K/mcL (140-400); Red Blood Count 3.88 M/mcL (4.19-5.50); Segmented Neutrophils % 40.7 %; White Blood Count 5.5 K/mcL (4.3-11.1)
[2021-04-09 02:22] LABS: BUN/Creatinine Ratio 12 (6-26); Blood Urea Nitrogen 16 mg/dL (8-23); Calcium 8.4 mg/dL (8.6-10.3); Carbon Dioxide 28 mEq/L (23-29); Chloride 105 mEq/L (98-107); Glucose 82 mg/dL (70-105); Magnesium 1.6 mg/dL (1.6-2.6); Osmolality,Calculated 286 (280-300); Phosphorous 3.2 mg/dL (2.7-4.5); Potassium 3.6 mEq/L (3.5-5.1); Sodium 138 mEq/L (136-145); eGFR For African Americans > 60 (> 60); eGFR For Non-African Americans 50 (> 60)
[2021-04-09] MEDS: *HR* Heparin 5,000 UNIT/ML VIAL SQ SCH (05:09)
[2021-04-09] MEDS: 0.9 % Sodium Chloride 1,000 ML IVC SCH ×2 (05:09→18:11)
[2021-04-09] MEDS: Metoclopramide 10 MG/2 ML VIAL IVP SCH ×3 (05:10→18:12)
[2021-04-09] MEDS: Insulin LISPRO 300 UNITS/3 ML VIAL SUBQ SCH ×3 (09:52→15:53)
[2021-04-09] MEDS: Pantoprazole 40 MG VIAL IVP SCH (09:55)
[2021-04-09] MEDS: lisinopriL 5 MG TABLET PO SCH (09:55)
[2021-04-09] MEDS: clonazePAM 1 MG TABLET PO SCH ×3 (09:55→20:21)
[2021-04-09] MEDS: *HR* Rivaroxaban 10 MG TABLET PO SCH (09:58)
[2021-04-09] MEDS: Morphine Sulfate 2 MG/ML SYRINGE IVP PRN (11:22)
[2021-04-10] MEDS: Insulin LISPRO 300 UNITS/3 ML VIAL SUBQ SCH ×5 (01:07→20:58)
[2021-04-10] MEDS: Metoclopramide 10 MG/2 ML VIAL IVP SCH ×5 (01:08→23:12)
[2021-04-10 02:33] LABS: BUN/Creatinine Ratio 10 (6-26); Blood Urea Nitrogen 13 mg/dL (8-23); Calcium 8.6 mg/dL (8.6-10.3); Carbon Dioxide 27 mEq/L (23-29); Chloride 107 mEq/L (98-107); Glucose 82 mg/dL (70-105); Magnesium 1.6 mg/dL (1.6-2.6); Osmolality,Calculated 289 (280-300); Potassium 3.8 mEq/L (3.5-5.1); Sodium 140 mEq/L (136-145); eGFR For African Americans > 60 (> 60); eGFR For Non-African Americans 52 (> 60)
[2021-04-10 02:55] LABS: Basophils % 0.8 %; Eosinophils # 0.1 K/mcL (0.0-0.6); Eosinophils % 2.8 %; Hematocrit 36.2 % (37.5-50.1); Hemoglobin 12.1 g/dL (12.9-16.9); Immature Granulocytes % 0.4 % (0-4); Lymphocytes # 2.3 K/mcL (0.6-4.6); Lymphocytes % 49.2 %; Mean Corpuscular HGB Conc 33.4 g/dL (31.6-35.5); Mean Corpuscular Hemoglobin 30.9 pg (28.0-33.3); Mean Corpuscular Volume 92.6 fL (83.0-100.0); Mean Platelet Volume 9.5 fL (9.4-12.4); Monocytes # 0.4 K/mcL (0.0-1.3); Monocytes % 9.1 %; Neutrophils # 1.8 K/mcL (1.6-8.9); Platelet Count 171 K/mcL (140-400); Red Blood Count 3.91 M/mcL (4.19-5.50); Red Cell Distribution Width 12.9 % (11.5-14.5); Segmented Neutrophils % 37.7 %; White Blood Count 4.7 K/mcL (4.3-11.1)
[2021-04-10] MEDS: 0.9 % Sodium Chloride 1,000 ML IVC SCH ×2 (06:07→20:58)
[2021-04-10] MEDS: *HR* Rivaroxaban 10 MG TABLET PO SCH (08:35)
[2021-04-10] MEDS: Pantoprazole 40 MG VIAL IVP SCH (08:36)
[2021-04-10] MEDS: clonazePAM 1 MG TABLET PO SCH ×3 (08:36→20:58)
[2021-04-10] MEDS: lisinopriL 5 MG TABLET PO SCH (08:36)
[2021-04-10] MEDS: Morphine Sulfate 2 MG/ML SYRINGE IVP PRN (23:26)
[2021-04-11 05:39] LABS: Basophils % 0.7 %; Eosinophils # 0.2 K/mcL (0.0-0.6); Hematocrit 33.7 % (37.5-50.1); Hemoglobin 11.5 g/dL (12.9-16.9); Immature Granulocytes % 0.4 % (0-4); Lymphocytes # 2.6 K/mcL (0.6-4.6); Lymphocytes % 46.9 %; Mean Corpuscular HGB Conc 34.1 g/dL (31.6-35.5); Mean Corpuscular Hemoglobin 31.2 pg (28.0-33.3); Mean Corpuscular Volume 91.3 fL (83.0-100.0); Mean Platelet Volume 9.8 fL (9.4-12.4); Monocytes # 0.4 K/mcL (0.0-1.3); Monocytes % 7.9 %; Neutrophils # 2.3 K/mcL (1.6-8.9); Platelet Count 171 K/mcL (140-400); Red Blood Count 3.69 M/mcL (4.19-5.50); Red Cell Distribution Width 12.7 % (11.5-14.5); Segmented Neutrophils % 41.1 %; White Blood Count 5.6 K/mcL (4.3-11.1)
[2021-04-11] MEDS: Metoclopramide 10 MG/2 ML VIAL IVP SCH ×3 (05:40→18:21)
[2021-04-11 05:55] LABS: BUN/Creatinine Ratio 8 (6-26); Blood Urea Nitrogen 10 mg/dL (8-23); Calcium 8.5 mg/dL (8.6-10.3); Carbon Dioxide 25 mEq/L (23-29); Chloride 109 mEq/L (98-107); Glucose 82 mg/dL (70-105); Magnesium 1.6 mg/dL (1.6-2.6); Osmolality,Calculated 288 (280-300); Phosphorous 2.8 mg/dL (2.7-4.5); Potassium 3.5 mEq/L (3.5-5.1); Sodium 140 mEq/L (136-145); eGFR For African Americans > 60 (> 60); eGFR For Non-African Americans 56 (> 60)
[2021-04-11] MEDS: Insulin LISPRO 300 UNITS/3 ML VIAL SUBQ SCH ×3 (09:26→17:19)
[2021-04-11] MEDS: *HR* Rivaroxaban 10 MG TABLET PO SCH (10:00)
[2021-04-11] MEDS: clonazePAM 1 MG TABLET PO SCH ×3 (10:00→20:04)
[2021-04-11] MEDS: Pantoprazole 40 MG VIAL IVP SCH (10:01)
[2021-04-11] MEDS: lisinopriL 5 MG TABLET PO SCH (10:01)
[2021-04-11] MEDS: 0.9 % Sodium Chloride 1,000 ML IVC SCH (10:59)
[2021-04-11] MEDS: Morphine Sulfate 2 MG/ML SYRINGE IVP PRN (20:08)
[2021-04-12] MEDS: Insulin LISPRO 300 UNITS/3 ML VIAL SUBQ SCH ×2 (00:29→07:41)
[2021-04-12] MEDS: Metoclopramide 10 MG/2 ML VIAL IVP SCH ×2 (00:38→04:21)
[2021-04-12] MEDS: 0.9 % Sodium Chloride 1,000 ML IVC SCH (00:38)
[2021-04-12 02:32] LABS: Basophils % 0.7 %; Eosinophils # 0.2 K/mcL (0.0-0.6); Eosinophils % 3.2 %; Hematocrit 34.2 % (37.5-50.1); Hemoglobin 12.1 g/dL (12.9-16.9); Immature Granulocytes % 0.4 % (0-4); Lymphocytes # 2.6 K/mcL (0.6-4.6); Lymphocytes % 45.8 %; Mean Corpuscular HGB Conc 35.4 g/dL (31.6-35.5); Mean Corpuscular Hemoglobin 32.1 pg (28.0-33.3); Mean Corpuscular Volume 90.7 fL (83.0-100.0); Mean Platelet Volume 9.7 fL (9.4-12.4); Monocytes # 0.4 K/mcL (0.0-1.3); Monocytes % 7.6 %; Neutrophils # 2.4 K/mcL (1.6-8.9); Platelet Count 172 K/mcL (140-400); Red Blood Count 3.77 M/mcL (4.19-5.50); Red Cell Distribution Width 12.7 % (11.5-14.5); Segmented Neutrophils % 42.3 %; White Blood Count 5.7 K/mcL (4.3-11.1)
[2021-04-12 02:50] LABS: BUN/Creatinine Ratio 8 (6-26); Blood Urea Nitrogen 10 mg/dL (8-23); Calcium 8.7 mg/dL (8.6-10.3); Carbon Dioxide 24 mEq/L (23-29); Chloride 109 mEq/L (98-107); Glucose 89 mg/dL (70-105); Magnesium 1.5 mg/dL (1.6-2.6); Osmolality,Calculated 287 (280-300); Phosphorous 3.4 mg/dL (2.7-4.5); Potassium 3.6 mEq/L (3.5-5.1); Sodium 139 mEq/L (136-145); eGFR For African Americans > 60 (> 60); eGFR For Non-African Americans 58 (> 60)
[2021-04-12 07:01] VITALS: BP 144/77; PULSE 56; TEMP 97.7; O2SAT 91
[2021-04-12] MEDS: clonazePAM 1 MG TABLET PO SCH (08:59)
[2021-04-12] MEDS: Pantoprazole 40 MG VIAL IVP SCH (08:59)
[2021-04-12] MEDS: lisinopriL 5 MG TABLET PO SCH (09:00)
[2021-04-12] MEDS: *HR* Rivaroxaban 10 MG TABLET PO SCH (09:00)
== END 2021-04-12 12:00 | disposition home or self-care (01) | DRG 389 ==
LOC: EMEROOARM 00:51 → 3ANU 00:51
PROVIDERS: ADMIT Student in an Organized Health Care Education/Training Program; ATTEND Student in an Organized Health Care Education/Training Program